=== PATIENT | male | born 1955 | race Caucasian/White ===

== ENCOUNTER 2017-04-23 09:19 | Day surgery (SDC) | payer OTHER ==
[~2017-04-23] VITALS: Ht 188 cm; Wt 110.0 kg
[2017-04-23] MEDS ORDERED: LIDOCAINE 2% (SDV) 5 ML INJ ONE ×2 (10:17)
[2017-04-23] MEDS ORDERED: PROPOFOL 20 ML ONE (10:17)
[2017-04-23 10:20] VITALS: Ht 188 cm; Wt 110.0 kg
[2017-04-23 10:43] VITALS: BP 166/85; PULSE 53; RESP 18
[2017-04-23 11:35] VITALS: BP 151/83; PULSE 50; RESP 12
--- NOTE | 2017-04-23 11:50 | GILP ---
DATE OF PROCEDURE: 04/23/2017 NAME OF PROCEDURES: Colonoscopy and polypectomy. SURGEON: Agueda Cook MD PREOPERATIVE DIAGNOSIS: Positive occult blood in stool. POSTOPERATIVE DIAGNOSES: 1. Colonoscopy all the way to the cecum. 2. Small polyp from the sigmoid colon was removed using the snare and electrocautery. 3. Internal hemorrhoids. INDICATION FOR THE PROCEDURE: Mr. Lele Vasquez is a 61-year-old male patient who was noted to have p ositive occult blood in stool. The patient was scheduled for colonoscopy for further evaluation. The procedures and possible complications were well explained to the patient. He understood and con sented to the procedure. DESCRIPTION OF PROCEDURE: Under the influence of anesthesia, the colonoscope was carefully introduc ed in the rectum and under direct vision, it was advanced all the way to the cecum. FINDINGS: The patient had a small polyp in the sigmoid colon and it was removed using the snare and electrocautery. The patient also had internal hemorrhoids. He tolerated the procedure very well and there was no complication from the procedure. At the end o f the procedure, he was awake with stable vital signs and he was discharged home to the care of his family. IMPRESSION: 1. Colonoscopy all the way to the cecum. 2. Small sigmoid colon polyp was removed using the snare and electrocautery. 3. Internal hemorrhoids. PLAN: Next screening colonoscopy in 10 years. Dictated By: AGUEDA COOK MD GD/NTS Conf#: [id number] DID#: [id number] CC: AGUEDA COOK MD;*EndCC*
== END 2017-04-23 12:29 | disposition home or self-care (01) ==
LOC: GIL 09:19
PROVIDERS: ATTEND Internal Medicine Gastroenterology
DX: K92.1 Melena (principal); K64.8 Other hemorrhoids; D12.5 Benign neoplasm of sigmoid colon
CPT/HCPCS: 45380; Z7610